=== PATIENT | male | born 1990 | race Caucasian/White ===

== ENCOUNTER 2017-02-09 18:14 | Emergency (ER) | payer SELFPAY ==
[~2017-02-09] VITALS: Ht 175.3 cm; Wt 100.0 kg
[2017-02-09 18:23] VITALS: BP 123/90; PULSE 74; RESP 16; O2SAT 96
--- NOTE | 2017-02-09 18:37 | ED.REPORT ---
HPI-Abd Pain M Under 41 Date of Service February 09, 2017 ED Provider: John Benjamin MD The patient is a healthy 26 year old male who presents to the ED with left flank pain onset twenty minutes prior to arrival. The pain radiates to his left inguinal area. Associated symptoms include hematuria, nausea, and vomiting. The patient denies other symptoms. His pain has reduced in the ED. He has never had similar symptoms in the past. Nursing Notes Stated Complaint: LEFT SIDE PAIN, PEEING BLOOD, VOMITING Chief Complaint: Male Abdominal Pain Nursing Notes Reviewed: Yes Allergies: Coded Allergies: No Known Allergies (Unverified , 02/09/17) General Time Seen by MD: 18:34 Chief Complaint Flank pain left Hx Obtained From: Patient Arrived By: Walk-in Sudden in Onset?: Yes Onset Occurred: 16 - 30 minutes ago Symptom Duration: Since onset Progression since Onset: Gradually improving Location: : Flank left Quality: Painful Radiation: : Inguinal left Severity: Current: Moderate Severity: Maximum: Moderate Pertinent Negative: Relieved by nothing Recent Healthcare: No recent doctor visit Similar Sx Previous: No Past Medical History Past Medical History None reported Past Surgical History None reported Smoking History Never Smoker Social History Other Social History: Good social support Ambulatory Status Independent Review of Systems Review of Systems Note: + Left inguinal pain Constitutional: Denies: Fever Respiratory: Denies: Non-productive cough, Shortness of breath GI: Reports: Nausea, Vomiting Male: Reports Flank pain (Left), Reports Hematuria Complete sys rev & neg: except as marked. Physical Exam Initial Vital Signs Vital Signs (First) Date Time Temp Pulse Resp B/P Pulse Ox O2 Delivery O2 Flow Rate FiO2 02/09/17 18:23 36.6 74 16 123/90 96 02/09/17 20:02 Room Air Initial VS: Reviewed Head / Eyes: Atraumatic, Normocephalic ENT: Conjunctiva normal, No scleral icterus Neck: Supple, Full range of motion Skin: Warm, Dry, No cyanosis Neurologic: Alert, Oriented, Nonfocal Psychiatric: Mood/affect normal, Behavior normal, Normal thought content General/Constitutional: Awake, Alert, No acute distress Respiratory / Chest: Breath sounds NL, Breath sounds = bilat, No respiratory distress Cardiovascular: Heart rate NL, Regular rhythm, Heart sounds NL Abdomen: Soft, Non-tender Back: Atraumatic Flank / Spine / Paraspinal: Positive: Flank tender L (Mild) Re-Eval/Medical Decision Med Decision/Clinical Course This young man's symptoms are most consistent with ureterolithiasis. So consistent in fact, that I do not believe further workup is requisite at this time. The patient is not interested in further evaluation at this time mainly because of financial concerns but I do think this is a reasonable course of action at this time. Re-Evaluation/Progress : Time of Eval: 18:53 Patient Status: Condition improved Re-Evaluation/Progress Note: Discussed with patient physical exam findings, diagnosis, and plan for discharge. Follow-up and return to the ER instructions given. Patient agrees with plan for care and all questions were addressed. Counseled Regarding: Diagnosis, Need for follow-up, When/why to return to ED Patient Discharge & Departure Primary Impression: Ureterolithiasis Disposition: Home Discharge Condition All VS Reviewed: Yes Condition: Improved Patient Instructions: Renal Colic (ED) Additional Instructions: Thank you for entrusting us with your care. Please take Zofran as prescribed. Use Ibuprofen 800 mg every 8 hours as directed for moderate pain. Use the hydrocodone/APAP for severe pain. Do not drink alcohol, drive, or consume acetaminophen while taking the hydrocodone Call the referred clinic on Friday for a follow-up appointment. Return to the ER with any new or worsening symptoms including high fever or uncontrolled pain. Referrals: [facility] Scribe Attestation Portions of this note were transcribed by Jodie Lux. I, Dr. Benjamin, personally performed the history, physical exam, and medical decision-making; I reviewed and confirmed the accuracy of the information in the transcribed note. Signed by: Antonio Mitchell, 02/09/2017, 19:50 copies to: [facility] John Benjamin MD February 09, 2017 18:37 JODIE LUX February 09, 2017 18:51
[2017-02-09] MEDS ORDERED: _HYDROcodone/APAP 5-325 mg Tablet PO PRN (19:00)
[2017-02-09] MEDS ORDERED: _Ondansetron ODT 4 mg Tablet PO PRN (19:00)
[2017-02-09] MEDS ORDERED: HYDROcodone-APAP 10-325 mg PO ONE (19:30)
[2017-02-09 20:02] VITALS: BP 114/72; PULSE 78; RESP 16; O2SAT 98
[2017-02-09 20:06] VITALS: BP 114/72; PULSE 78; RESP 16; O2SAT 98
== END 2017-02-09 20:06 | disposition home or self-care (01) ==
LOC: SED 18:14
DX: N20.1 Calculus of ureter (principal)